=== PATIENT | female | born 1975 | race Caucasian/White ===

== ENCOUNTER → 2019-05-06 | Day surgery (SDC) | payer OTHER ==
--- NOTE | 2019-05-05 09:45 | Diagnostic Imaging Report ---
EXAMINATION: CHEST 2 VIEWS INDICATION: Pre-op, smoking. COMPARISON: None FINDINGS: TUBES and LINES: None. LUNGS: Lungs are well inflated. There is no evidence of pneumonia or pulmonary edema. PLEURA: No pleural effusion or pneumothorax. HEART AND MEDIASTINUM: The cardiomediastinal silhouette is unremarkable. BONES AND SOFT TISSUES: No acute osseous abnormality. UPPER ABDOMEN: No free air under the diaphragm. IMPRESSION: No acute radiographic abnormality. Signed by: Dr. Annabel Quintanilla MD on 05/05/2019 9:39 AM
[~2019-05-06] MED LIST: ACETAMINOPHEN 1000 MG/100 ML 100 ML IV ONE; ALPRAZOLAM0.25 M1 PO; BUSPIRONE HCL5 MG PO; CEFAZOLIN SOD 1 GM/NS 50ML 50 ML IV ONE; DEXAMETHASONE SOD PHOS INJ 4 MG/ML VIAL ONE; DEXTROAMPHETAMIN5 M1 PO; FENTANYL CITRATE/PF 100MCG/2 ML INJ ONE; KETOROLAC TROMETHAMINE 30 MG/ML VIAL ONE; LIDOCAINE HCL 2% LOCAL INJ 5 ML SDV VIAL INJ ONE; MIDAZOLAM HCL 2 MG/2 ML VIAL ONE; ONDANSETRON HCL INJ 2MG/ML 2ML 2 MG/ML VIAL ONE; PROPOFOL IV EMULSION 10 MG/ML 20 ML VIAL ONE; SEVOFLURANE INHAL SOLN 250 ML PEN BTL ONE; VITA; VITAMIN D1000 UNI1 PO; VITAMIN IM
--- OUTSIDE RECORDS SUMMARY | 2019-05-06 05:59 | XMS REPORT ---
Author Author [facility] Address Unknown Phone Unavailable Care Team Providers Care Produce Team Member Name Role Phone MIRA TREJO Unavailable Unavailable Problems This patient has no known problems. Allergies, Adverse Reactions, Alerts This patient has no known allergies or adverse reactions. Medications This patient has no known medications. Results Test Description Test Time Test Comments Text Results Atomic Results Result Comments CHEST 2 VIEWS 2019-05-05 09:32:00 [facility] [address] [id number] Patient Name: ZITA SANDERS MR #: [id number] : 1975 Age/Sex: 43/F Req #: [id number] [facility] Physician: Ordered by: MIRA TREJO MD Report #: [id number] Location: OR Room/Bed: Procedure: [id number] DX/CHEST 2 VIEWS Exam Date: 05/05/19 Exam Time: 0900 REPORT STATUS: Signed EXAMINATION: CHEST 2 VIEWS INDICATION: Pre-op, smo khalif. COMPARISON: None FINDINGS: TUBES and LINES: None. LUNGS: Lungs are well inflated. There is no evidence of pneumonia or pulmonary edema. PLEURA: No pleural effusion or pneumothorax. HEART AND MEDIASTINUM: The cardiomediastinal silhouette is unremarkable. BONES AND SOFT TISSUES: No acute osseous abnormality. UPPER ABDOMEN: No free air under the diaphragm. IMPRESSION: No acute radiographic abnormality. Signed by: Dr. Maria De Jesus Mckay MD on 05/05/2019 9:39 AM Dictated By: MARIA DE JESUS MCKAY MD 8 Transcribed By: JORGE on 05/05/19938 COPY TO: MIRA TREJO MD
--- NOTE | 2019-05-06 07:10 | NUR ---
SPIRITUAL CARE - Pre-Surgery Assessment: Pt in bed. Pt's daughter at bedside. Pt reported supportive attention from family and friends. Intervention: I provided pastoral presence, hospitality, and sympathetic listening. I acquainted pt with availability of traffic warehouse supervisor while hospitalized. Outcome: Pt expressed appreciation for visit. No need for follow up indicated at this time. [facility] Spiritual Care Department O: [phone] Pager: [phone] ([phone] number calling from)
[2019-05-06 10:00] VITALS: BP 119/79
--- NOTE | 2019-05-06 11:25 | Operative Report ---
DATE OF PROCEDURE: 05/06/2019 SURGEON: Sebastian Wesley MD WILDLIFE PROTECTOR: Tony Tillman PA-C. PREOPERATIVE DIAGNOSIS: Bilateral carpal tunnel syndrome. POSTOPERATIVE DIAGNOSIS: Bilateral carpal tunnel syndrome. PROCEDURE: Bilateral endoscopic carpal tunnel release. INDICATIONS: The patient is a 43-year-old lady, who has clinic signs and symptoms suggestive of bilateral carpal tunnel syndrome. She also has evidence of bilateral C6 radiculopathy. The findings and options have been discussed. We plan on bilateral endoscopic carpal tunnel releases. She understands the possibility of persistent discomfort from a C6 radiculopathy. She wishes to proceed. PROCEDURE IN DETAIL: The patient was brought to the operating room and placed under general anesthetic. Both upper extremities were prepped and draped in a sterile manner. A preoperative time-out was performed. Initial attention was directed towards the right arm. The extremity was exsanguinated and a proximal tourniquet was briefly inflated to 250 mmHg. An incision was made over the flexion crease of the right wrist. The palmaris longus was retracted to the radial side of the wound. The flexor retinaculum was elevated and incised. An elevator was used to tease the tenosynovium off the undersurface of the transverse carpal ligament. The MicroAire dilators were placed. The hook of the hamate was palpated. The MicroAire endoscope was then placed into the carpal tunnel. The undersurface of the transverse carpal ligament was cleanly visualized without evidence of soft tissue interposition. The knife was deployed and the ligament was cut from distal to proximal. Care was taken to ensure that a full-thickness cut was made. The proximal retinaculum was incised under direct visualization using a pair of blunt Metzenbaum scissors. The incision was closed with two interrupted nylon stitches. A sterile bandage was applied. The tourniquet was deflated. The same procedure was then performed on the left side. The patient was extubated and transported to the recovery room in stable condition. There was no blood loss and all needle and sponge counts were correct. Sebastian Wesley MD DR/DOMINICK /[id number]
== END | disposition home or self-care (01) ==
LOC: OR 05:57
PROVIDERS: ATTEND Specialist
DX: G56.03 Carpal tunnel syndrome, bilateral upper limbs (principal); F98.8 Other specified behavioral and emotional disorders with onset usually occurring in childhood and adolescence; F41.9 Anxiety disorder, unspecified; Z91.040 Latex allergy status; Z01.810 Encounter for preprocedural cardiovascular examination; Z01.818 Encounter for other preprocedural examination; Z87.891 Personal history of nicotine dependence
CPT/HCPCS: 29848; 71046; 81025; 93005; J0131; J0690; J1100; J1885; J2001; J2250; J2405; J2704

== ENCOUNTER 2019-05-21 16:01 | Outpatient (RCR) | payer OTHER ==
[~2019-05-21 16:01] MED LIST changes: -ACETAMINOPHEN 1000 MG/100 ML 100 ML IV ONE; -CEFAZOLIN SOD 1 GM/NS 50ML 50 ML IV ONE; -DEXAMETHASONE SOD PHOS INJ 4 MG/ML VIAL ONE; -FENTANYL CITRATE/PF 100MCG/2 ML INJ ONE; -KETOROLAC TROMETHAMINE 30 MG/ML VIAL ONE; -LIDOCAINE HCL 2% LOCAL INJ 5 ML SDV VIAL INJ ONE; -MIDAZOLAM HCL 2 MG/2 ML VIAL ONE; -ONDANSETRON HCL INJ 2MG/ML 2ML 2 MG/ML VIAL ONE; -PROPOFOL IV EMULSION 10 MG/ML 20 ML VIAL ONE; -SEVOFLURANE INHAL SOLN 250 ML PEN BTL ONE
== END 2019-05-25 ==
LOC: PT 16:01
PROVIDERS: ATTEND Specialist
DX: M47.22 Other spondylosis with radiculopathy, cervical region (principal); M62.81 Muscle weakness (generalized)

== ENCOUNTER 2019-06-05 07:00 | Outpatient (RCR) | payer OTHER | END 2019-06-25 | LOC: PT 07:00 | PROVIDERS: ATTEND Specialist | DX: M47.22 Other spondylosis with radiculopathy, cervical region (principal); M62.81 Muscle weakness (generalized) ==